=== PATIENT | male | born 1980 ===

== ENCOUNTER 2017-10-21 19:08 | Observation (INO) | payer MEDICAID, OTHER ==
[2017-10-21 19:28] VITALS: O2SAT 99
--- NOTE | 2017-10-21 19:52 | ED PDOC ---
Arrival/HPI - General Chief Complaint: Chest Pain Time Seen by Provider: 10/21/17 19:24 Historian: Patient - History of Present Illness Narrative History of Present Illness (Text): 10/21/17 19:24 37 year old male, with no significant past medical history, presents to the Emergency department complaining of left sided chest pain since past week. Patient informs intermittent chest discomfort described as "pinching" which radiates to his left upper chest wall. Patient informs taking aspiring with mild improvement to symptoms. Patient denies any fever, chills, nausea, vomiting , diarrhea, abdominal pain, shortness of breath, trauma or any other complaints. Patient denies any family history of cardiac disorder. Time/Duration: < week Symptom Onset: Gradual Symptom Course: Unchanged Quality: Aching Activities at Onset: Light Context: Home Past Medical History - Provider Review Nursing Documentation Reviewed: Yes - Psychiatric Hx Substance Use: No Family/Social History - Physician Review Nursing Documentation Reviewed: Yes Family/Social History: No Known Family HX Smoking Status: n Hx Alcohol Use: No Hx Substance Use: No Allergies/Home Meds Allergies/Adverse Reactions: Allergies No Known Allergies Allergy (Verified 10/21/17 19:24) Review of Systems - Physician Review All systems were reviewed & negative as marked: Yes - Review of Systems Constitutional: absent: Fevers Respiratory: absent: SOB Cardiovascular: Chest Pain Gastrointestinal: absent: Abdominal Pain, Diarrhea, Nausea, Vomiting Physical Exam - Physical Exam Narrative Physical Exam (Text): 10/21/17 19:24 Gen: VS reviewed, alert, well developed, well nourished, nontoxic, mild distress ENT: normal pharynx Eye: EOMI, PERRL Neck: no JVD, supple, no adenopathy CV: regular rate, regular rhythm, no rubs,no murmur, no gallops, S1, S2, pulses equal and strong Pulm: no distress, clear to auscultation, no wheeze, no rhonchi, breath sounds equal, no rales Abd: soft, nontender, no guarding, no rebound, no rigidity, normal bowel sounds Ext: no edema Skin: good color, no rash, no cyanosis Psych: responds appropriately to questions, normal affect Neuro: oriented x3, CN2-12 intact grossly, motor intact, sensation intact Vital Signs Reviewed: Yes Vital Signs Temp Pulse Resp BP Pulse Ox 10/21/17 19:25 98.2 F 72 18 120/86 99 Temperature: Afebrile Blood Pressure: Normal Pulse: Regular Respiratory Rate: Normal Appearance: Positive for: Well-Appearing, Non-Toxic, Comfortable Pain Distress: None Mental Status: Positive for: Alert and Oriented X 3 Medical Decision Making ED Course and Treatment: 10/21/17 19:24 Impression: 37 year old male presents to the Emergency department for chest pain. Plan: -- EKG -- Labs -- Chest X-ray -- Reassess and disposition Prior Visits: Notes and results from previous visits were reviewed. Progress Notes: 10/21/17 21:00 Discussed case hospitalist arson and bomb investigator, Dr. Pina, who is aware and agrees with Emergency department management plan, accepts patient under his service. Patient is admitted for high risk chest pain with abnormal EKG, will likely require stress test to rule out ACS. - Lab Interpretations Lab Results: 10/21/17 19:56 10/21/17 19:56 Lab Results 10/21/17 19:56: Phosphorus 3.1, Magnesium 2.2 10/21/17 19:56: Sodium 142, Potassium 3.7, Chloride 103, Carbon Dioxide 27, Anion Gap 16, BUN 20, Creatinine 1.4, Est GFR ( Amer) > 60, Est GFR (Non- Af Amer) 57, Random Glucose 140 H, Calcium 9.3, Total Bilirubin 0.3, AST 41, ALT 55, Alkaline Phosphatase 159 H, Troponin I < 0.01, Total Protein 7.5, Albumin 4.1, Globulin 3.4, Albumin/Globulin Ratio 1.2, Triglycerides 197 H, Cholesterol 199, LDL Cholesterol Direct 126, HDL Cholesterol 33 10/21/17 19:56: PT 11.3, INR 0.99, APTT 31.0 10/21/17 19:56: WBC 13.2 H, RBC 5.34, Hgb 15.7, Hct 45.6, MCV 85.4, MCH 29.4, MCHC 34.4, RDW 13.1, Plt Count 216, MPV 10.3, Gran % 42.9 L, Lymph % (Auto) 43.3 H, [place] % (Auto) 7.6 H, Eos % (Auto) 5.7 H, Baso % (Auto) 0.5, Gran # 5.67 , Lymph # (Auto) 5.7 H, [place] # (Auto) 1.0 H, Eos # (Auto) 0.8 H, Baso # (Auto) 0.06 - RAD Interpretation Radiology Orders: 10/21/17 19:24 CHEST PORTABLE [RAD] Stat Hydraulic Specialist: Radiologist - EKG Interpretation EKG Interpretation (Text): 10/21/17 20:29 19:21: NSR @ 93 bpm, nml qrs, nml axis, lateral flip t waves in lead v3 through lead v6. Interpreted by ED Physician: Yes Type: 12 lead EKG - Medication Orders Current Medication Orders: Aspirin (Ecotrin) 81 mg PO DAILY JANKI Heparin Sodium (Porcine) (Heparin) 5,000 units SC Q12 JANKI PRN Reason: Protocol Pantoprazole Sodium (Protonix Inj) 40 mg IVP DAILY JANKI Discontinued Medications Aspirin (Aspirin Chewable) 81 mg PO STAT STA Stop: 10/21/17 20:56 Last Admin: 10/21/17 21:07 Dose: 81 mg - Scribe Statement The provider has reviewed the documentation as recorded by the Geremiasibkelly Bruce. All medical record entries made by the Geremiasibkelly were at my direction and personally dictated by me. I have reviewed the chart and agree that the record accurately reflects my personal performance of the history, physical exam, medical decision making, and the department course for this patient. I have also personally directed, reviewed, and agree with the discharge instructions and disposition. Disposition/Present on Arrival - Present on Arrival Any Indicators Present on Arrival: No History of DVT/PE: No History of Uncontrolled Diabetes: No Urinary Catheter: No History of Decub. Ulcer: No History Surgical Site Infection Following: None - Disposition Have Diagnosis and Disposition been Completed?: Yes Diagnosis: Chest pain, Abnormal EKG Disposition: HOSPITALIZED Disposition Time: 22:02 Condition: STABLE Discharge Instructions (ExitCare): Chest Pain (ED) Forms: [employer] (Lao)
[2017-10-21 20:10] LABS: BASO # 0.06 K/mm3 (0.0-2.0); BASO % 0.5 % (0.0-3.0); EOS # 0.8 (0.0-0.7); EOS % 5.7 % (1.5-5.0); GRAN # 5.67 (1.4-6.5); GRAN % 42.9 % (50.0-68.0); HEMOGLOBIN 15.7 g/dL (14.0-18.0); LYMPH # 5.7 (1.2-3.4); LYMPH % 43.3 % (22.0-35.0); MEAN CELL VOLUME 85.4 fl (80.0-105.0); MEAN CORPUSCULAR HEMOGLOBIN 29.4 pg (25.0-35.0); MEAN CORPUSCULAR HGB CONC 34.4 g/dl (31.0-37.0); MEAN PLATELET VOLUME 10.3 fl (7.0-11.0); MONO % 7.6 % (1.0-6.0); RBC 5.34 10^6/uL (3.5-6.1); RED CELL DISTRIBUTION WIDTH 13.1 % (11.5-14.5); WHITE BLOOD COUNT 13.2 10^3/ul (4.5-11.0)
[2017-10-21 20:11] LABS: INR 0.99 (0.93-1.08); PROTHROMBIN TIME 11.3 SECONDS (9.4-12.5)
[2017-10-21 20:13] LABS: ALB/GLOB RATIO 1.2 (1.1-1.8); ALBUMIN 4.1 g/dL (3.0-4.8); ALT/SGPT 55 U/L (7-56); AST/SGOT 41 U/L (17-59); BLOOD UREA NITROGEN 20 mg/dL (7-21); CALCIUM 9.3 mg/dL (8.4-10.5); GFR AFRICAN-AMERICAN > 60; GFR NON-AFRICAN AMERICAN 57; HDL CHOLESTEROL 33 mg/dL (29-60)
[2017-10-21 20:24] LABS: LDL CHOLESTEROL 126 mg/dL (0-129)
[2017-10-21 20:27] LABS: TROPONIN I < 0.01 ng/mL
--- NOTE | 2017-10-21 21:24 | CP.PCM.HP ---
History of Present Illness - History of Present Illness History of Present Illness: 37 year old male with no past medical history comes in today complaining of chest pain for the past week. The patient reports the pain is located in the left chest with some radiation to the left arm. The patient also reports some dizziness in conjunction with the chest pain. The patient reports no factors initiating the pain states that in comes and goes throughout the day. The patient denies any dizziness, shortness of breath, fevers, chills, nausea, vomiting, abdominal pain, changes in vision, headaches, syncopal episodes, or any other complaints. PMD: Denies Past medical history: Denies Past surgical history: Denies Allergies: Denies Medications: Denies Past family history denies Social history: Social drinker. Denies tobacco and illicit drug use. Present on Admission - Present on Admission Any Indicators Present on Admission: No Review of Systems - Constitutional Constitutional: absent: Chills, Daytime Sleepiness, Headache, Snoring, Weakness - EENT Eyes: absent: Blurred Vision, Dry Eye, Loss of Peripheral Vision, Other Visual Disturbances, Loss of Vision Ears: Dizziness. absent: Ear Discharge Nose/Mouth/Throat: absent: Nasal Congestion, Bleeding Gums, Halitosis, Facial Pain - Cardiovascular Cardiovascular: Chest Pain. absent: Diaphoresis, Irregular Heart Rhythm, Leg Edema, Palpitations, Pedal Edema, Syncope - Respiratory Respiratory: absent: Cough, Hemoptysis, Change in Mucous Color - Gastrointestinal Gastrointestinal: absent: Belching, Change in Stool Character, Dyspepsia, Fecal Incontinence, Heartburn, Melena, Nausea - Genitourinary Genitourinary: absent: Pyuria, Nocturia, Urinary Urgency - Musculoskeletal Musculoskeletal: absent: Arthralgias, Atrophy, Limited Range of Motion, Myalgias , Tingling - Neurological Neurological: Dizziness. absent: Lack of Coordination, Radicular Pain, Vertigo , Weakness - Psychiatric Psychiatric: absent: Abnormal Sleep Pattern, Behavioral Changes, Hopelessness, Panic Attacks - Endocrine Endocrine: absent: Polydipsia, Polyphagia, Polyuria Past Patient History - Past Social History Smoking Status: n - PSYCHIATRIC Hx Substance Use: No Meds Allergies/Adverse Reactions: Allergies Allergy/AdvReac Type Severity Reaction Status Date / Time No Known Allergies Allergy Verified 10/21/17 19:24 Physical Exam - Head Exam Head Exam: ATRAUMATIC, NORMAL INSPECTION, NORMOCEPHALIC - Eye Exam Eye Exam: EOMI, Normal appearance, PERRL. absent: Periorbital tenderness Pupil Exam: NORMAL ACCOMODATION, PERRL. absent: Irregular, Unequal - ENT Exam ENT Exam: Mucous Membranes Moist, Normal Oropharynx - Respiratory Exam Respiratory Exam: Clear to Auscultation Bilateral, NORMAL BREATHING PATTERN. absent: Prolonged Expiratory Phase, Respiratory Distress - Cardiovascular Exam Cardiovascular Exam: REGULAR RHYTHM, +S1, +S2 - GI/Abdominal Exam GI & Abdominal Exam: Normal Bowel Sounds, Soft. absent: Hypoactive Bowel Sounds , Organomegaly, Tenderness - Neurological Exam Neurological exam: Alert, CN II-XII Intact, Normal Gait, Oriented x3 - Psychiatric Exam Psychiatric exam: Normal Affect, Normal Mood - Skin Skin Exam: Dry, Intact, Normal Color, Warm Results - Vital Signs Recent Vital Signs: Last Vital Signs Temp 98.2 F 10/21/17 19:25 Pulse 72 10/21/17 19:25 Resp 18 10/21/17 19:25 BP 120/86 10/21/17 19:25 Pulse Ox 99 10/21/17 19:25 - Labs Result Diagrams: 10/21/17 19:56 10/21/17 19:56 Labs: Laboratory Results - last 24 hr 10/21/17 10/21/17 10/21/17 19:56 19:56 19:56 WBC 13.2 H RBC 5.34 Hgb 15.7 Hct 45.6 MCV 85.4 MCH 29.4 MCHC 34.4 RDW 13.1 Plt Count 216 MPV 10.3 Gran % 42.9 L Lymph % (Auto) 43.3 H [place] % (Auto) 7.6 H Eos % (Auto) 5.7 H Baso % (Auto) 0.5 Gran # 5.67 Lymph # (Auto) 5.7 H [place] # (Auto) 1.0 H Eos # (Auto) 0.8 H Baso # (Auto) 0.06 PT 11.3 INR 0.99 APTT 31.0 Sodium 142 Potassium 3.7 Chloride 103 Carbon Dioxide 27 Anion Gap 16 BUN 20 Creatinine 1.4 Est GFR ( Amer) > 60 Est GFR (Non-Af Amer) 57 Random Glucose 140 H Calcium 9.3 Total Bilirubin 0.3 AST 41 ALT 55 Alkaline Phosphatase 159 H Troponin I < 0.01 Total Protein 7.5 Albumin 4.1 Globulin 3.4 Albumin/Globulin Ratio 1.2 Triglycerides 197 H Cholesterol 199 LDL Cholesterol Direct 126 HDL Cholesterol 33 Assessment & Plan - Assessment and Plan (Free Text) Assessment: 37 year old male with no past medical history who is being admitted for chest pain. Plan: 1. Chest pain r/o ACS. -EKG: NSR @ 93BPM. Lateral flip T waves in V3-V6. -Troponin (-)x1. Trend Troponins. -Cardiology Consulted. Help appreciated -Hemoglobin A1c ordered .Will f/u with results. -TSH ordered. Will f/u with results. PPX -Heparin -Protonix Plan discussed with Attending Dr. Pina. Gary Miranda, PGY-1
[2017-10-22 00:13] VITALS: BMI 31.7
[2017-10-22 06:52] LABS: ALB/GLOB RATIO 1.2 (1.1-1.8); ALT/SGPT 48 U/L (7-56); AST/SGOT 33 U/L (17-59); BLOOD UREA NITROGEN 18 mg/dL (7-21); CALCIUM 9.5 mg/dL (8.4-10.5); GFR AFRICAN-AMERICAN > 60; GFR NON-AFRICAN AMERICAN > 60
[2017-10-22 07:36] VITALS: BP 124/83; RESP 20; TEMP 97.6
[2017-10-22 08:31] LABS: BASO # 0.05 K/mm3 (0.0-2.0); BASO % 0.5 % (0.0-3.0); EOS # 0.6 (0.0-0.7); EOS % 6.1 % (1.5-5.0); GRAN # 4.93 (1.4-6.5); GRAN % 46.8 % (50.0-68.0); HEMOGLOBIN 16.5 g/dL (14.0-18.0); LYMPH # 4.2 (1.2-3.4); LYMPH % 39.5 % (22.0-35.0); MEAN CELL VOLUME 85.8 fl (80.0-105.0); MEAN PLATELET VOLUME 10.6 fl (7.0-11.0); MONO # 0.8 (0.1-0.6); MONO % 7.1 % (1.0-6.0); RBC 5.5 10^6/uL (3.5-6.1); RED CELL DISTRIBUTION WIDTH 13.1 % (11.5-14.5); WHITE BLOOD COUNT 10.5 10^3/ul (4.5-11.0)
--- NOTE | 2017-10-22 08:54 | RAD ---
HISTORY: Chest pain COMPARISON: No prior. FINDINGS: LUNGS: The lungs are well inflated and clear. PLEURA: No significant pleural effusion identified, no pneumothorax apparent. CARDIOVASCULAR: Normal. OSSEOUS STRUCTURES: No significant abnormalities. VISUALIZED UPPER ABDOMEN: Normal. OTHER FINDINGS: None. IMPRESSION: No active pulmonary disease.
[2017-10-22 14:27] VITALS: PULSE 89
--- NOTE | 2017-10-22 15:46 | CP.PCM.DIS ---
<Gurjit Webb - Last Filed: 10/22/17 18:45> Provider - Provider Date of Admission: 10/21/17 20:59 Attending physician: Blake Carmen MD Consults: Dr. Dalton Cardiology Time Spent in preparation of Discharge (in minutes): 35 Hospital Course - Lab Results Lab Results: Most Recent Lab Values WBC 10.5 10^3/ul (4.5-11.0) D 10/22/17 06:30 RBC 5.50 10^6/uL (3.5-6.1) 10/22/17 06:30 Hgb 16.5 g/dL (14.0-18.0) 10/22/17 06:30 Hct 47.2 % (42.0-52.0) 10/22/17 06:30 MCV 85.8 fl (80.0-105.0) 10/22/17 06:30 MCH 30.0 pg (25.0-35.0) 10/22/17 06:30 MCHC 35.0 g/dl (31.0-37.0) 10/22/17 06:30 RDW 13.1 % (11.5-14.5) 10/22/17 06:30 Plt Count 227 10^3/uL (120.0-450.0) 10/22/17 06:30 MPV 10.6 fl (7.0-11.0) 10/22/17 06:30 Gran % 46.8 % (50.0-68.0) L 10/22/17 06:30 Lymph % (Auto) 39.5 % (22.0-35.0) H 10/22/17 06:30 [place] % (Auto) 7.1 % (1.0-6.0) H 10/22/17 06:30 Eos % (Auto) 6.1 % (1.5-5.0) H 10/22/17 06:30 Baso % (Auto) 0.5 % (0.0-3.0) 10/22/17 06:30 Gran # 4.93 (1.4-6.5) 10/22/17 06:30 Lymph # (Auto) 4.2 (1.2-3.4) H 10/22/17 06:30 [place] # (Auto) 0.8 (0.1-0.6) H 10/22/17 06:30 Eos # (Auto) 0.6 (0.0-0.7) 10/22/17 06:30 Baso # (Auto) 0.05 K/mm3 (0.0-2.0) 10/22/17 06:30 PT 11.3 SECONDS (9.4-12.5) 10/21/17 19:56 INR 0.99 (0.93-1.08) 10/21/17 19:56 APTT 31.0 Seconds (25.1-36.5) 10/21/17 19:56 D-Dimer, Quantitative < 200 ng/mL (0-243) 10/22/17 09:45 Sodium 142 mmol/L (132-148) 10/22/17 06:10 Potassium 4.6 mmol/L (3.6-5.0) 10/22/17 06:10 Chloride 106 mmol/L (98-107) 10/22/17 06:10 Carbon Dioxide 24 mmol/L (21-33) 10/22/17 06:10 Anion Gap 17 (10-20) 10/22/17 06:10 BUN 18 mg/dL (7-21) 10/22/17 06:10 Creatinine 1.2 mg/dl (0.8-1.5) 10/22/17 06:10 Est GFR ( Amer) > 60 10/22/17 06:10 Est GFR (Non-Af Amer) > 60 10/22/17 06:10 Random Glucose 102 mg/dL (70-110) 10/22/17 06:10 Hemoglobin A1c 6.1 % (4.2-6.5) 10/21/17 19:56 Calcium 9.5 mg/dL (8.4-10.5) 10/22/17 06:10 Phosphorus 3.1 mg/dL (2.5-4.5) 10/21/17 19:56 Magnesium 2.2 mg/dL (1.7-2.2) 10/21/17 19:56 Total Bilirubin 0.7 mg/dL (0.2-1.3) 10/22/17 06:10 AST 33 U/L (17-59) 10/22/17 06:10 ALT 48 U/L (7-56) 10/22/17 06:10 Alkaline Phosphatase 126 U/L (38-126) D 10/22/17 06:10 Troponin I < 0.01 ng/mL 10/22/17 06:30 Total Protein 7.4 g/dL (5.8-8.3) 10/22/17 06:10 Albumin 4.0 g/dL (3.0-4.8) 10/22/17 06:10 Globulin 3.4 gm/dL 10/22/17 06:10 Albumin/Globulin Ratio 1.2 (1.1-1.8) 10/22/17 06:10 Triglycerides 197 mg/dL (35-160) H 10/21/17 19:56 Cholesterol 199 mg/dL (130-200) 10/21/17 19:56 LDL Cholesterol Direct 126 mg/dL (0-129) 10/21/17 19:56 HDL Cholesterol 33 mg/dL (29-60) 10/21/17 19:56 TSH 3rd Generation 2.11 mIU/mL (0.46-4.68) 10/21/17 19:56 - Hospital Course Hospital Course: 37 year old male with no past medical history comes in today complaining of chest pain for the past week. The patient reports the pain is located in the left chest with some radiation to the left arm. The patient also reports some dizziness in conjunction with the chest pain. The patient reports no factors initiating the pain states that in comes and goes throughout the day. The patient denies any dizziness, shortness of breath, fevers, chills, nausea, vomiting, abdominal pain, changes in vision, headaches, syncopal episodes, or any other complaints. On further questioning, patient revealed the chest pain was worsened when he lied down, especially after meals. He also had been driving back and forth to [employer] 3 times a week for the past 2 weeks. He reports the chest pain also occurred while he was driving. EKG showed T wave inversions in V3-V6 and Echocardiogram showed mild left ventricular hypertrophy. Troponins x 3 were negative and the patient had no abnormal conduction observed on (remote) telemetry. He was found to have normal TSH, an HgA1c of 6.1, and normal blood pressure. Furthermore, cardiology was consulted and cleared the patient. His echocardiogram showed an LVEF of 66%, mild LVH, and no significant valvular abnormalities. He was discharged to follow up with resident Dr. Webb and Dr. Delarosa in the [facility] clinic on November 04 , and he was prescribed a 30 day supply of Protonix and directed how appropriately take the medicaiton and what else to do to avoid symptoms of reflux which he was experiencing. His lipid panel was 197, 199, 126, 35 respectively, total cholesterol, triglycerides, LDL, and HDL. He was also counselled on weight loss. - Date & Time of H&P Date of H&P: 10/22/17 Time of H&P: 15:46 Discharge Exam - Head Exam Head Exam: ATRAUMATIC, NORMAL INSPECTION, NORMOCEPHALIC - Eye Exam Eye Exam: EOMI, Normal appearance - ENT Exam ENT Exam: Mucous Membranes Moist - Neck Exam Neck exam: Normal Inspection Additional comments: no carotid bruits - Respiratory Exam Respiratory Exam: Clear to PA & Lateral, NORMAL BREATHING PATTERN. absent: Accessory Muscle Use - Cardiovascular Exam Cardiovascular Exam: RRR, +S1, +S2 - GI/Abdominal Exam GI & Abdominal Exam: Normal Bowel Sounds. absent: Guarding, Rebound - Extremities Exam Extremities exam: normal inspection - Back Exam Back exam: NORMAL INSPECTION - Neurological Exam Neurological exam: Alert, CN II-XII Intact, Oriented x3 - Psychiatric Exam Psychiatric exam: Normal Affect, Normal Mood - Skin Skin Exam: Dry, Intact, Normal Color, Warm Discharge Plan - Discharge Medications Prescriptions: Pantoprazole [Protonix EC Tab] 40 mg PO ACB #30 ect - Follow Up Plan Condition: STABLE Disposition: HOME/ ROUTINE Instructions: Chest Pain That Is Not Caused by the Heart (DC), Chest Pain (DC) Additional Instructions: 1) Patient to follow up at [facility] at 2:[address] Webb. This is located in [facility], ask lockstitch front maker upon entry where [facility] is. 2) Patient to avoid lying down after eating food and to avoid drinking coffee on an empty stomach, chewing gum, and wearing tight belts. 3) Patient to exercise at least 4 days a week. 4) Patient recommended to follow an 1800 calorie diet. <Blake Carmen - Last Filed: 10/23/17 17:06> Provider - Provider Date of Admission: 10/21/17 20:59 Attending physician: Blake Carmen MD Hospital Course - Lab Results Lab Results: Most Recent Lab Values WBC 10.5 10^3/ul (4.5-11.0) D 10/22/17 06:30 RBC 5.50 10^6/uL (3.5-6.1) 10/22/17 06:30 Hgb 16.5 g/dL (14.0-18.0) 10/22/17 06:30 Hct 47.2 % (42.0-52.0) 10/22/17 06:30 MCV 85.8 fl (80.0-105.0) 10/22/17 06:30 MCH 30.0 pg (25.0-35.0) 10/22/17 06: MCHC 35.0 g/dl (31.0-37.0) 10/22/17 06:30 RDW 13.1 % (11.5-14.5) 10/22/17 06:30 Plt Count 227 10^3/uL (120.0-450.0) 10/22/17 06:30 MPV 10.6 fl (7.0-11.0) 10/22/17 06:30 Gran % 46.8 % (50.0-68.0) L 10/22/17 06:30 Lymph % (Auto) 39.5 % (22.0-35.0) H 10/22/17 06:30 [place] % (Auto) 7.1 % (1.0-6.0) H 10/22/17 06:30 Eos % (Auto) 6.1 % (1.5-5.0) H 10/22/17 06:30 Baso % (Auto) 0.5 % (0.0-3.0) 10/22/17 06:30 Gran # 4.93 (1.4-6.5) 10/22/17 06:30 Lymph # (Auto) 4.2 (1.2-3.4) H 10/22/17 06:30 [place] # (Auto) 0.8 (0.1-0.6) H 10/22/17 06:30 Eos # (Auto) 0.6 (0.0-0.7) 10/22/17 06:30 Baso # (Auto) 0.05 K/mm3 (0.0-2.0) 10/22/17 06:30 PT 11.3 SECONDS (9.4-12.5) 10/21/17 19:56 INR 0.99 (0.93-1.08) 10/21/17 19:56 APTT 31.0 Seconds (25.1-36.5) 10/21/17 19:56 D-Dimer, Quantitative < 200 ng/mL (0-243) 10/22/17 09:45 Sodium 142 mmol/L (132-148) 10/22/17 06:10 Potassium 4.6 mmol/L (3.6-5.0) 10/22/17 06:10 Chloride 106 mmol/L (98-107) 10/22/17 06:10 Carbon Dioxide 24 mmol/L (21-33) 10/22/17 06:10 Anion Gap 17 (10-20) 10/22/17 06:10 BUN 18 mg/dL (7-21) 10/22/17 06:10 Creatinine 1.2 mg/dl (0.8-1.5) 10/22/17 06:10 Est GFR ( Amer) > 60 10/22/17 06:10 Est GFR (Non-Af Amer) > 60 10/22/17 06:10 Random Glucose 102 mg/dL (70-110) 10/22/17 06:10 Hemoglobin A1c 6.1 % (4.2-6.5) 10/21/17 19:56 Calcium 9.5 mg/dL (8.4-10.5) 10/22/17 06:10 Phosphorus 3.1 mg/dL (2.5-4.5) 10/21/17 19:56 Magnesium 2.2 mg/dL (1.7-2.2) 10/21/17 19:56 Total Bilirubin 0.7 mg/dL (0.2-1.3) 10/22/17 06:10 AST 33 U/L (17-59) 10/22/17 06:10 ALT 48 U/L (7-56) 10/22/17 06:10 Alkaline Phosphatase 126 U/L (38-126) D 10/22/17 06:10 Troponin I < 0.01 ng/mL 10/22/17 06:30 Total Protein 7.4 g/dL (5.8-8.3) 10/22/17 06:10 Albumin 4.0 g/dL (3.0-4.8) 10/22/17 06:10 Globulin 3.4 gm/dL 10/22/17 06:10 Albumin/Globulin Ratio 1.2 (1.1-1.8) 10/22/17 06:10 Triglycerides 197 mg/dL (35-160) H 10/21/17 19:56 Cholesterol 199 mg/dL (130-200) 10/21/17 19:56 LDL Cholesterol Direct 126 mg/dL (0-129) 10/21/17 19:56 HDL Cholesterol 33 mg/dL (29-60) 10/21/17 19:56 TSH 3rd Generation 2.11 mIU/mL (0.46-4.68) 10/21/17 19:56 Urine Opiates Screen Negative (NEGATIVE) 10/22/17 16:33 Urine Methadone Screen Negative (NEGATIVE) 10/22/17 16:33 Ur Barbiturates Screen Negative (NEGATIVE) 10/22/17 16:33 Ur Phencyclidine Scrn Negative (NEGATIVE) 10/22/17 16:33 Ur Amphetamines Screen Negative (NEGATIVE) 10/22/17 16:33 U Benzodiazepines Scrn Negative (NEGATIVE) 10/22/17 16:33 U Oth Cocaine Metabols Negative (NEGATIVE) 10/22/17 16:33 U Cannabinoids Screen Negative (NEGATIVE) 10/22/17 16:33 Attending/Attestation - Attestation I have personally seen and examined this patient.: Yes I have fully participated in the care of the patient.: Yes I have reviewed all pertinent clinical information, including history, physical exam and plan: Yes Notes (Text): 10/23/17 17:01 Attending note; Patient seen and examined with resident. Patient is a 37-year-old male with a past medical history of obesity is admitted with atypical chest pain. Possible GERD versus musculoskeletal pain. EKG showed nonspecific ST-T changes. Cardiac enzymes negative. Cardiology evaluation appreciated. D-dimer is normal. Echocardiogram is normal. Patient will be discharged home today. Follow-up with [facility] clinic. Appointment given. 10/23/17 17:05
--- NOTE | 2017-10-22 16:45 | CARD ---
APPROVED REPORT EXAM: Two-dimensional and M-mode echocardiogram with Doppler and color Doppler. INDICATION LV Function:SystolicDiastolic 2D DIMENSIONS Left Atrium (2D)3.2 (1.6-4.0cm)IVSd1.2 (0.7-1.1cm) LVDd4.7 (3.9-5.9cm)PWd1.2 (0.7-1.1cm) LVDs3.0 (2.5-4.0cm)FS (%) 36.4 % LVEF (%)66.1 (>50%) M-Mode DIMENSIONS Aortic Root2.80 (2.2-3.7cm)Aortic Cusp Exc.1.90 (1.5-2.0cm) Aortic Valve AoV Peak Qbwnxszp513.0cm/Cari Peak GR.7mmHg Mitral Valve MV E Babcayrw89.0cm/sMV A Nuwbprrg26.5cm/sE/A ratio0.9 TDI E/Lateral E'0.0E/Medial E'0.0 Tricuspid Valve TR Peak [id number]/sRAP [id number] Peak Gr.7mmHg [id number] LEFT VENTRICLE The left ventricle is normal size. There is normal left ventricular wall thickness. The left ventricular function is normal. The left ventricular ejection fraction is within the normal range. There is normal LV segmental wall motion. The left ventricular diastolic function is normal. RIGHT VENTRICLE The right ventricle is normal size. There is normal right ventricular wall thickness. The right ventricular systolic function is normal. ATRIA The left atrium size is normal. The right atrium size is normal. AORTIC VALVE The aortic valve is normal in structure. No aortic regurgitation is present. There is no aortic valvular stenosis. MITRAL VALVE The mitral valve is normal in structure. There is no mitral valve regurgitation noted. There is no mitral valve stenosis. TRICUSPID VALVE The tricuspid valve is normal in structure. There is no tricuspid valve regurgitation noted. GREAT VESSELS The aortic root is normal in size. PERICARDIAL EFFUSION There is no pericardial effusion. <Conclusion> The left ventricle is normal size. There is normal left ventricular wall thickness. The left ventricular function is normal. The left ventricular ejection fraction is within the normal range. There is normal LV segmental wall motion. The left ventricular diastolic function is normal.
[2017-10-22 17:15] LABS: BARBITURATES, UR NEGATIVE (NEGATIVE); BENZODIAZEPINES, UR NEGATIVE (NEGATIVE); OPIATES, UR NEGATIVE (NEGATIVE); PHENCYCLIDINE, UR NEGATIVE (NEGATIVE)
--- NOTE | 2017-10-22 20:06 | CON ---
DATE: 10/22/2017 CARDIOLOGY CONSULTATION REASON FOR CONSULTATION: Chest pain. 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 The patient denied any retrosternal chest pain. Denies any associated shortness of breath or diaphoresis. The patient is unaware of any prior cardiac history and he is a nonsmoker and denies any substance abuse. The patient at this time denies chest pain. The patient denies any recent injury either at work or during his exercise program. SOCIAL HISTORY: Nonsmoker, social drinker. MEDICATIONS: Aspirin 81 mg once a day, heparin 5000 units subcutaneously every 12 hours, Protonix 40 mg intravenously once a day. PHYSICAL EXAMINATION: GENERAL: The patient is a young middle-aged male who does not appear to be in any distress. VITAL SIGNS: Blood pressure 124/83, heart rate 69, temperature 97.6, respirations 20. HEENT: Normocephalic. CHEST: Clear. HEART: S1 and S2 regular. ABDOMEN: Soft. EXTREMITIES: No edema. LABORATORY DATA: Hemoglobin and hematocrit 16.5 and 47.2, white count 10.5, platelet count 127,000. SMA-7 today is entirely within normal limit. Three sets of troponins are negative. Triglycerides 197, slightly elevated. The rest of lipid profile is within normal limit. TSH level is within normal limit. PT/PTT and D-dimer are within normal limit. EKG revealed sinus rhythm with nonspecific ST-T wave changes. ASSESSMENT: Atypical chest pain, myocardial infarction is ruled out. RECOMMENDATIONS: I will continue current aspirin and subcutaneous heparin therapy. I will follow echocardiography study performed today. Víctor Dalton MD
--- NOTE | 2017-10-22 22:58 | CARD ---
APPROVED REPORT EKG Measurement Heart [id number] <Conclusion> Normal sinus rhythm Nonspecific T wave abnormality, Abnormal ECG
[2017-10-23] MEDS ORDERED: Pantoprazole 40 mg EC Tab PO SCH (07:30)
== END 2017-10-22 18:16 | disposition home or self-care (01) ==
LOC: ED 19:08 → ERH 20:59 → 3RNO 23:52
PROVIDERS: ADMIT Internal Medicine; ATTEND Internal Medicine
DX: R07.89 Other chest pain (principal); R94.31 Abnormal electrocardiogram [ECG] [EKG]
CPT/HCPCS: 36415; 71045; 80053; 80061; 83036; 83735; 84100; 84443; 84484; 85025; 85378; 85610; 85730; 93005; 93306; 99285; C9113; G0378; G0480; J1644